=== PATIENT | female | born 1970 | race Caucasian/White ===

== ENCOUNTER → 2016-10-24 | Outpatient (CLI) | payer OTHER ==
--- NOTE | 2016-10-24 22:03 | DIAGNOSTIC IMAGING REPORT ---
LEFT FOREARM 2 VIEWS ROUTINE CLINICAL HISTORY: Left forearm pain. Trauma. COMPARISON: None. DISCUSSION: The AP view is significantly obliqued. No fractures or dislocations are visualized. IMPRESSION: Limited study from a positioning standpoint. No fractures or dislocations are visualized. Electronically signed by: Ronal Tavera M.D. 10/24/2016 10:02 PM Dictated Date/Time: 10/24/2016 10:01 PM
== END | disposition home or self-care (01) ==
LOC: C.RAD 21:43
PROVIDERS: ATTEND Physician Assistant Surgical
DX: M79.632 Pain in left forearm (principal)